=== PATIENT | female | born 1965 | race Caucasian/White ===

== ENCOUNTER → 2021-07-04 | Outpatient (CLI) | payer OTHER ==
--- NOTE | 2021-07-04 12:06 | CT ---
EXAMINATION TYPE: CT abdomen pelvis wo con DATE OF EXAM: 07/04/2021 HISTORY: Left flank pain w/dysuria since 05-26-2021 CT DLP: 462 mGycm. Automated Exposure Control for Dose Reduction was Utilized. TECHNIQUE: CT scan of the abdomen and pelvis is performed without oral or IV contrast. COMPARISON: NONE FINDINGS: Within the limitations of a non-contrast study, the following observations are made. LUNG BASES: No significant abnormality is appreciated. LIVER/GB: No significant abnormality is appreciated. PANCREAS: No significant abnormality is seen. SPLEEN: No significant abnormality is seen. ADRENALS: No significant abnormality is seen. KIDNEYS: No right-sided renal calculus or hydronephrosis. There are 3 lower pole left renal calculi m easuring up to 4 mm in size coronal image 48. There is mild/moderate left-sided hydronephrosis due to obstructing 9 mm calculus distal left ureter coronal image 47. There is 6 mm round calcification jus t above right pubic symphysis likely external to the bladder favoring phlebolith over nondependent bl adder calculus. BOWEL: Normal-appearing appendix from cecum. Some scattered colonic diverticula. No CT evidence for a cute diverticulitis. GENITAL ORGANS: There is anteverted enlarged uterus with heterogeneous hyperdense masses one which is calcified consistent with uterine fibroids. LYMPH NODES: No greater than 1cm abdominal or pelvic lymph nodes are appreciated. OSSEOUS STRUCTURES: No significant abnormality is seen. OTHER: Mild calcified plaque distal abdominal aorta extends into iliac branch vessels. IMPRESSION: There is 9 mm calculus distal left ureter causing [id number] left-sided hydronephro sis. Advise urology referral.
== END | disposition home or self-care (01) ==
LOC: RADCTMAIN 11:31
PROVIDERS: ATTEND Family Medicine
DX: N13.2 Hydronephrosis with renal and ureteral calculous obstruction (principal)
CPT/HCPCS: 74176